=== PATIENT | male | born 1995 | race Two or more races ===

== ENCOUNTER 2022-06-26 19:40 | Emergency (ER) | payer MEDICAID, OTHER ==
[~2022-06-26] VITALS: Ht 180.3 cm; Wt 79.4 kg
[2022-06-26 23:57] VITALS: BP 116/74
== END 2022-06-26 23:59 | disposition home or self-care (01) ==
LOC: EDBD 19:40 → ER 19:42
DX: S16.1XXA Strain of muscle, fascia and tendon at neck level, initial encounter (principal); S00.81XA Abrasion of other part of head, initial encounter; V49.9XXA Car occupant (driver) (passenger) injured in unspecified traffic accident, initial encounter; Y93.89 Activity, other specified; Y92.488 Other paved roadways as the place of occurrence of the external cause; Y99.8 Other external cause status
CPT/HCPCS: 70450; 71250; 72125; 74176